=== PATIENT | female | born 1980 | race Caucasian/White ===

== ENCOUNTER → 2017-11-12 | Outpatient (REF) | payer OTHER, BC | LOC: M LAB REF 16:27 | DX: R30.0 Dysuria (principal) ==

== ENCOUNTER 2017-11-13 13:17 | Emergency (ER) | payer SELFPAY, BC | END 2017-11-13 15:50 | disposition left against medical advice (07) | LOC: M ED 13:17 | DX: Z53.21 Procedure and treatment not carried out due to patient leaving prior to being seen by health care provider (principal) ==

== ENCOUNTER → 2017-11-26 | Outpatient (REF) | payer BC ==
[2017-11-26 23:20] LABS: CHLAMYDIA DNA AMPLIFICATION NEGATIVE (NEGATIVE); GC DNA AMPLIFICATION NEGATIVE (NEGATIVE)
== END ==
LOC: M WUC 19:34
DX: N39.0 Urinary tract infection, site not specified (principal)
CPT/HCPCS: 87591

== ENCOUNTER → 2018-05-13 | Outpatient (REF) | payer OTHER ==
[2018-05-13 13:46] LABS: BACTERIA, URINE AUTO NEGATIVE (NEGATIVE); MUCUS, URINE SMALL (NEGATIVE); RBC, URINE AUTO 1 /HPF (0-3); SQUAMOUS EPITHELIAL CELL UR AU 0 /HPF (0-6); WBC, URINE AUTO 7 /HPF (0-3)
== END ==
LOC: M LAB REF 11:55
DX: N39.0 Urinary tract infection, site not specified (principal)

== ENCOUNTER → 2019-04-16 | Outpatient (CLI) | payer OTHER ==
[~2019-04-16] MED LIST: SULFAMETHOXAZOLE-TMP PO
[2019-04-17 12:56] LABS: HEPATITIS B SURFACE ANTIBODY NEGATIVE (POSITIVE); HEPATITIS B SURFACE ANTIGEN NEGATIVE (NEGATIVE); RUBELLA IgG QUALITATIVE IMMUNE (IMMUNE)
[2019-04-18 10:18] LABS: HEPATITIS B CORE ANTIBODY IGM NEGATIVE (NEGATIVE)
[2019-04-19 00:06] LABS: HEPATITIS A IgG TOTAL Negative (Negative); HERPES ZOSTER, VARICELLA IgG 587 index (Immune >165); HERPES ZOSTER, VARICELLA IgM <0.91 index (0.00-0.90); POLIO ANTIBODIES/POLIOMYELITIS 1:16 (Neg:<1:8); RUBEOLA IgG ANTIBODY <25.0 AU/mL (Immune >29.9)
== END ==
LOC: M SMT 09:01
PROVIDERS: ATTEND Physician Assistant
DX: Z01.84 Encounter for antibody response examination (principal)

== ENCOUNTER → 2019-05-30 | Outpatient (REF) | payer OTHER ==
[2019-05-30 17:54] LABS: APPEARANCE, URINE CLEAR (CLEAR); BACTERIA, URINE AUTO 1+ (NEGATIVE); BILIRUBIN, URINE AUTO NEGATIVE (NEGATIVE); BLOOD, URINE BLOOD 1+ (NEGATIVE); COLOR, URINE STRAW (YELLOW); GLUCOSE, URINE (UA) AUTO NEGATIVE (NEGATIVE); KETONE, URINE AUTO NEGATIVE (NEGATIVE); LEUKOCYTE ESTERASE, URINE AUTO 2+ (NEGATIVE); MUCUS, URINE SMALL (NEGATIVE); NITRITE, URINE AUTO NEGATIVE (NEGATIVE); PROTEIN, URINE AUTO NEGATIVE (NEGATIVE); RBC, URINE AUTO 1 /HPF (0-3); SPECIFIC GRAVITY URINE AUTO 1.003 (1.002-1.035); SQUAMOUS EPITHELIAL CELL UR AU 0 /HPF (0-6); UROBILINOGEN, URINE AUTO 0.2 mg/dL (0.0-2.0); WBC, URINE AUTO 42 /HPF (0-3)
== END ==
LOC: M LAB REF 16:21
PROVIDERS: ATTEND Physician Assistant
DX: N39.0 Urinary tract infection, site not specified (principal)

== ENCOUNTER 2021-08-29 08:05 | Outpatient (RCR) | END 2021-08-29 15:00 | disposition home or self-care (01) | LOC: M EMP 08:05 | PROVIDERS: ATTEND Pediatrics | DX: Z11.52 Encounter for screening for COVID-19 (principal) ==

== ENCOUNTER → 2022-07-25 | Outpatient (CLI) | payer OTHER ==
[2022-07-25 13:13] LABS: BASO % 0.7 % (0.0-1.0); EOS # 0.1 10^3/uL (0.0-0.5); EOS % 2.7 % (0.0-3.0); HEMATOCRIT 41.4 % (36.0-47.0); HEMOGLOBIN 13.6 g/dl (12.0-15.5); LYMPH # 1.5 10^3/uL (1.5-5.0); LYMPH % 36.5 % (24.0-44.0); MEAN CORPUSCULAR HEMOGLOBIN 32.6 pg (27.0-33.0); MEAN CORPUSCULAR HGB CONC 32.9 g/dl (32.0-36.5); MEAN CORPUSCULAR VOLUME 99.3 fl (80.0-96.0); MONO # 0.5 10^3/uL (0.0-0.8); MONO % 11.2 % (2.0-8.0); NEUTROPHILS % 48.7 % (36.0-66.0); PLATELET COUNT, AUTOMATED 201 10^3/uL (150-450); RED BLOOD COUNT 4.17 10^6/uL (4.00-5.40)
[2022-07-25 14:06] LABS: ALBUMIN 4.1 GM/DL (3.2-5.2); ALT/SGPT 21 U/L (12-78); BILIRUBIN,TOTAL 0.6 MG/DL (0.2-1.0); BLOOD UREA NITROGEN 12 MG/DL (7-18); CARBON DIOXIDE LEVEL 30 MEQ/L (21-32); CHLORIDE LEVEL 106 MEQ/L (98-107); CHOLESTEROL LEVEL 178 MG/DL (<200); CHOLESTEROL RISK RATIO 2.197 (<5); CREATININE FOR GFR 0.86 MG/DL (0.55-1.30); GLOMERULAR FILTRATION RATE > 60.0 (>58); GLUCOSE, FASTING 110 MG/DL (70-100); HDL CHOLESTEROL 81 MG/DL (>40); LDL CHOLESTEROL 84 MG/DL (<100); NON-HDL-C 97 MG/DL; POTASSIUM SERUM 4.2 MEQ/L (3.5-5.1); SODIUM LEVEL 139 MEQ/L (136-145); TOTAL PROTEIN 7.3 GM/DL (6.4-8.2); TRIGLYCERIDES LEVEL 63 MG/DL (<150)
[2022-07-25 14:18] LABS: HEMOGLOBIN A1c 5.6 %
[2022-07-25 18:13] LABS: TOTAL 25(OH) VITAMIN D 40.4 NG/ML (30.0-100.0)
== END ==
LOC: M LABDRWAD 07:42
PROVIDERS: ATTEND Family Medicine
DX: Z13.220 Encounter for screening for lipoid disorders (principal); Z13.29 Encounter for screening for other suspected endocrine disorder

== ENCOUNTER → 2022-08-16 | Outpatient (REF) ==
[2022-08-16 13:29] LABS: RSV AMPLIFICATION NEGATIVE (NEGATIVE)
== END ==
LOC: M LABSMTC 10:40
PROVIDERS: ATTEND Family Medicine
DX: Z20.822 Contact with and (suspected) exposure to COVID-19 (principal)

== ENCOUNTER → 2022-10-17 | Outpatient (CLI) | payer BC, OTHER, SELFPAY | LOC: M WHC 12:42 | PROVIDERS: ATTEND Physician Assistant | DX: Z12.31 Encounter for screening mammogram for malignant neoplasm of breast (principal) ==

== ENCOUNTER → 2023-08-28 | Outpatient (CLI) | payer BC | LOC: M WHC 12:25 | PROVIDERS: ATTEND Family Medicine | DX: L30.9 Dermatitis, unspecified (principal); R92.322 Mammographic fibroglandular density, left breast | CPT/HCPCS: 77066; G0279 ==

== ENCOUNTER → 2025-04-14 | Outpatient (CLI) | payer BC | LOC: M WHC 13:55 | PROVIDERS: ATTEND Physician Assistant | DX: R92.2 Inconclusive mammogram (principal); N63.20 Unspecified lump in the left breast, unspecified quadrant | CPT/HCPCS: 77065; G0279 ==

== ENCOUNTER → 2025-06-23 | Outpatient (CLI) | payer BC ==
[2025-06-23 19:30] LABS: BASO # 0.1 10^3/uL (0.0-0.2); BASO % 1.1 % (0.0-1.0); EOS # 0.1 10^3/uL (0.0-0.5); EOS % 2.7 % (0.0-3.0); LYMPH # 1.7 10^3/uL (1.5-5.0); LYMPH % 39.4 % (24.0-44.0); MONO # 0.5 10^3/uL (0.0-0.8); MONO % 11.5 % (2.0-8.0); NEUTROPHILS # 2.0 10^3/uL (1.5-8.5); NEUTROPHILS % 45.3 % (36.0-66.0); PLATELET COUNT, AUTOMATED 225 10^3/uL (150-450)
[2025-06-23 19:51] LABS: ALT/SGPT 21 U/L (7.0-40); AST/SGOT 23 U/L (<34); CALCIUM LEVEL 9.0 MG/DL (8.5-10.1); CARBON DIOXIDE LEVEL 30 MMOL/L (20-31); CHLORIDE LEVEL 102 MMOL/L (98-107); CREATININE FOR GFR 0.80 MG/DL (0.55-1.30); GLOMERULAR FILTRATION RATE > 90.0 (>58); POTASSIUM SERUM 4.1 MMOL/L (3.5-5.1); SODIUM LEVEL 139 MMOL/L (136-145)
[2025-06-23 19:55] LABS: FREE T4 1.17 NG/DL (0.89-1.76); LUTEINIZING HORMONE 13.3 mIU/ML
[2025-06-23 19:56] LABS: TESTOSTERONE 23 NG/DL (14-76)
[2025-06-23 19:57] LABS: ESTRADIOL 34.4 PG/ML
== END ==
LOC: M LABDRWAD 08:04
PROVIDERS: ATTEND Physician Assistant
DX: R94.6 Abnormal results of thyroid function studies (principal); R53.83 Other fatigue; N95.1 Menopausal and female climacteric states